=== PATIENT | male | born 1955 | race Caucasian/White ===

== ENCOUNTER → 2020-02-04 | Day surgery (SDC) | payer OTHER ==
[~2020-02-04] MED LIST: CRESTOR10 MG PO; FENTANYL CITRATE/PF 100MCG/2 ML INJ ONE; HYDROMORPHONE HC2 MG PO; HYOSCYAMINE 0.125 MG TAB ONE; LIDOCAINE HCL 2% LOCAL INJ 5 ML SDV VIAL INJ ONE; LISINOPRIL10 MG PO; METOPROLOL SUCC50 MG PO; PANTOPRAZOLE SO40 MG PO; PLAVIX75 MG PO; PROPOFOL IV EMULSION 10 MG/ML 50 ML VIAL ONE
--- OUTSIDE RECORDS SUMMARY | 2020-02-04 08:29 | XMS REPORT ---
Author [email or web address] Address Unknown Phone Unavailable Care Team Providers Care R D Manager Name Role Phone Unavailable Unavailable Payers Payer Name Policy Type Policy Number Effective Date Expiration Date Problems This patient has no known problems. Allergies, Adverse Reactions, Alerts Allergy Name Allergy Type Status Severity Reaction(s) Onset Date Inactive Date Treating Clinician Comments No Known Allergies DA Active U 2013-04-03 00:00:00 Medications This patient has no known medications. Results Test Description Test Time Test Comments Text Results Atomic Results Result Comments [facility] 2020-01-06 16:26:00 RUN DATE: 01/06/20 [place] - Lab PAGE 1 RUN TIME: 1626 Specimen Inquiry RUN USER: INTERFACE PATIENT: LENARD PINEDA LOC: [place] #: [id number] AGE/SX: 64/M ROOM: [address]: 01/03/20REG DR: Raquel Gallardo MD : 59 BED: A DIS: 01/06/20 STATUS: DIS Eve TLOC: SPEC #: [id number] RECD: 01/05/20 STATUS: LAVELLE DENTaylor #: [id number] GERI: 01/05/20- SUBM DR: Raquel Gallardo MD ENTERED: 01/05/20 SP TYPE: STOMACH OTHR DR: No Primary or Family Physician Kai Gallardo MD, Ori Z MD Quraishi, Mohammed A MD TUMOR REGISTRYORDERED: GROSS COPIES TO: No Primary or Family Physician Kai Gallardo MD [address] [place] [address] Raquel Gallardo MD [address] [place] [address] Thierry Torres MD [address] [place] [address] Anurag Posada MD [address] [facility] [place] [address] TUMOR REGISTRY MARKERS: INTRADEPARTMENTAL CONSULT, MALIGNANCY PROCEDURES: GROSS (01/06/20-1255) TISSUES: 1. ANTRUM - BX 2. ANTRUM - SUBMUCOSAL MASS BX 3. ESOPHAGUS, NOS - MINI CIRCUMFERENTIAL MASS BX CONTINUED ON NEXT PAGE RUN DATE: 01/06/20 [place] [facility] PAGE 2 RUN TIME: 1626 Specimen Inquiry RUN USER: INTERFACE SPEC #: [id number] PATIENT: LENARD PINEDA #[id number] (Continued) CLINICAL HISTORY COLLECTION DATE: 01/05/20 ABDOMINAL PAIN COMMENT Sections of the third specimen (esophageal biopsy) show fragments of squamous mucosa with basal cell hyperplasia, elongation of squamous papillae and increased intraepithelial lymphocytes compatible with reflux esophagitis. More significantly, a proliferation of malignant glands is seen invading desmoplastic stroma. Aggregates of malignant, cribriform glands are focally identified beneath benign squamous epithelium. The malignant glands are lined by cells with ovoid, slightly irreg ular, hyperchromatic nuclei and moderate cytoplasm. Mitotic activity is brisk. Cytologic atypia is more striking in some areas. The histologic features are those of an invasive adenocarcinoma. Little solid component is identified. The findings were discussed with Dr. Posada 01/06/2020 at 3:45 pm. Tissue will be submitted for ancillary studies and the results will be reported in an addendum. Multiple levels through the second specimen show benign gastric mucosa. No features diagnostic of submucosal lipoma or other polyp formation are seen. Intradepartmental consultation: DMW. FINAL DIAGNOSIS Gastric antrum, biopsy: REACTIVE GASTROPATHY FRAGMENTS OF GASTRIC MUCOSA WITH NO SIGNIFICANT PATHOLOGIC ALTERATION NEGATIVE FOR HELICOBACTER ORGANISMS NEGATIVE FOR INTESTINAL METAPLASIA NEGATIVE FOR MALIGNANCY Gastric antral submucosal mass, biopsy: BENIGN GASTRIC MUCOSA WITH MINIMAL CHRONIC INFLAMMATION MULTIPLE LEVELS EXAMINED Mini circumferential esophageal mass, biopsy: INVASIVE ADENOCARCINOMA, see comment FOCI OF ADENOCARCINOMA BENEATH BENIGN SQUAMOUS EPITHELIUM CHANGES OF REFLUX ESOPHAGITIS IN SQUAMOUS EPITHELIUM Meño/meg Meade [id number], [id number] CONTINUED ON NEXT PAGE RUN DATE: 01/06/20 [facility] [place] PAGE 3 RUN TIME: 1626 Specimen Inquiry RUN USER: INTERFACE SPEC #: [id number] PATIENT: LENARD PINEDA #[id number] (Continued) MACROSCOPIC The first specimen is received in formalin, labeled with the patient's name, identified as "antrum", and consists of lezama-pink biopsy tissue measuring 0.3 cm in aggregate, submitted as (1). The second specimen is received in formalin, labeled with the patient's name, identified as "antrum submucosal mass", and consists of lezama-light pink biopsy tissue measuring 0.3 cm, submitted as (2). The third specimen is received in formalin, labeled with the patient's name, identified as "mini circumferential mass", and consists of pink biopsy tissue measuring 0.35 cm in aggregate, submitted as (3). GROSS PERFORMED AT [facility] [address] [facility] [place] [address] [phone])[phone] MICROSCOPIC All of the stains, including any controls performed, stain appropriately. MICROSCOPIC PERFORMED AT [facility] [address] [place] [address] (P)[phone] PERFORMING SITE Diagnosis performed at: [facility], [place] [address] [facility], [place] [address] Signed SIGNATURE ON FILE Bradley Willams MD 01/06/20 1626 END OF REPORT STOMACH 2020-01-06 16:26:00 RUN DATE: 01/09/20 [place] [facility] PAGE 1 RUN TIME: 1617 Specimen Inquiry RUN USER: INTERFACE PATIENT: LENARD PINEDA [facility] #: [id number] LOC: [place] #: [id number] AGE/SX: 64/M ROOM: [facility] RE01/03/20REG DR: Raquel Gallardo MD : 59 BED: A DIS: 01/06/20 STATUS: DIS Eve TLOC: SPEC #: [id number] RECD: 01/05/20 STATUS: LAVELLE CEFERINO #: [id number] GERI: 01/05/20- SUBM DR: Raquel Gallardo MD ENTERED: 01/05/20 SP TYPE: STOMACH OTHR DR: No Primary or Family Physician Kai Gallardo MD, Ori Z MD Quraishi, Mohammed A MD TUMOR REGISTRYORDERED: GROSS COPIES TO: No Primary or Family Physician Kai Gallardo MD [address] [place] [address] Raquel Gallardo MD [address] [place] [address] Thierry Torres MD [address] [place] [address] Anurag Posada MD [address] [place] [address] TUMOR REGISTRY MARKERS: INTRADEPARTMENTAL CONSULT, MALIGNANCY PROCEDURES: GROSS (01/06/20-1255) TISSUES: 1. ANTRUM - BX 2. ANTRUM - SUBMUCOSAL MASS BX 3. ESOPHAGUS, NOS - MINI CIRCUMFERENTIAL MASS BX CONTINUED ON NEXT PAGE RUN DATE: 01/09/20 [facility] [place] PAGE 2 RUN TIME: 161 Specimen Inquiry RUN USER: INTERFACE SPEC #: [id number] PATIENT: LENARD PINEDA #[id number] (Continued) ADDENDUM FINDINGS Addendum #1 Entered: 01/09/201045 A HER2 Non-Breast IHC was received from [facility] Accession/Case No: [id number] and the interpretation is as follows: HER2 Non-Breast: POSITIVE Score: 3+ Please refer to [facility] report Accession/Case No: [id number] for any additional information. Addendum Signed SIGNATURE ON FILE Bradley Willams MD 01/09/20 1617 CLINICAL HISTORY COLLECTION DATE: 01/05/20 ABDOMINAL PAIN COMMENT Sections of the third specimen (esophageal biopsy) show fragments of squamous mucosa with basal cell hyperplasia, elongation of squamous papillae and increased intraepithelial lymphocytes compatible with reflux esophagitis. More significantly, a proliferation of malignant glands is seen invading desmoplastic stroma. Aggregates of malignant, cribriform glands are focally identified beneath benign squamous epithelium. The malignant glands are lined by cells with ovoid, slightly irregular, hyperchromatic nuclei and moderate cytoplasm. Mitotic activity is brisk. Cytologic atypia is more striking in some areas. The histologic features are those of an invasive adenocarcinoma. Little solid component is identified. The findings were discussed with Dr. Posada 01/06/2020 at 3:45 pm. Tissue will be submitted for ancillary studies and the results will be reported in an addendum. Multiple levels through the second specimen show benign gastric mucosa. No features diagnostic of submucosal lipoma or other polyp formation are seen. Intradepartmental consultation: [place]. CONTINUED ON NEXT PAGE ----- RUN DATE: 01/09/20 [facility] PAGE 3 RUN TIME: 1616 Specimen Inquiry RUN USER: INTERFACE SPEC #: [id number] PATIENT: LENARD PINEDA #[id number] (Continued) ------- FINAL DIAGNOSIS Gastric antrum, biopsy: REACTIVE GASTROPATHY FRAGMENTS OF GASTRIC MUCOSA WITH NO SIGNIFICANT PATHOLOGIC ALTERATION NEGATIVE FOR HELICOBACTER ORGANISMS NEGATIVE FOR INTESTINAL METAPLASIA NEGATIVE FOR MALIGNANCY Gastric antral submucosal mass, biopsy: BENIGN GASTRIC MUCOSA WITH MINIMAL CHRONIC INFLAMMATION MULTIPLE LEVELS EXAMINED Mini circumferential esophageal mass, biopsy: INVASIVE ADENOCARCINOMA, see comment FOCI OF ADENOCARCINOMA BENEATH BENIGN SQUAMOUS EPITHELIUM CHANGES OF REFLUX ESOPHAGITIS IN SQUAMOUS EPITHELIUM RRB/meg D [id number], [id number] MACROSCOPIC The first specimen is received in formalin, labeled with the patient's name, identified as "antrum", and consists of lezama-pink biopsy tissue measuring 0.3 cm in aggregate, submitted as (1). The second specimen is received in formalin, labeled with the patient's name, identified as "antrum submucosal mass", and consists of lezama-light pink biopsy tissue measuring 0.3 cm, submitted as (2). The third specimen is received in formalin, labeled with the patient's name, identified as "mini circumferential mass", and consists of pink biopsy tissue measuring 0.35 cm in aggregate, submitted as (3). GROSS PERFORMED AT [facility] [address] [facility] [place] [address] [phone])[phone] MICROSCOPIC All of the stains, including any controls performed, stain appropriately. MICROSCOPIC PERFORMED AT [facility] [address] [facility] CONTINUED ON NEXT PAGE RUN DATE: 01/09/20 [facility] PAGE 4 RUN TIME: 1617 Specimen Inquiry RUN USER: INTERFACE SPEC #: [id number] PATIENT: CHEYANNE PINEDAH #[id number] (Continued) MICROSCOPIC (Continued) [place] [address] [phone])[phone] PERFORMING SITE Diagnosis performed at: [facility] [place] [address] [facility] [place] [address] Signed SIGNATURE ON FILE Bradley Willams MD 01/06/20 16 26 END OF REPORT - CT CHEST W/CONTRAST 2020-01-05 15:15:00 Name: LENARD PINEDA [facility] : 1955 Age/S: 64 / M [address] [facility] Unit #: [id number] Loc: [place] [address] Phys: Anurag Posada MD Acct: [id number] Dis Date: Status: ADM IN PHONE #: [phone] Exam Date: 01/05/2020 9725 FAX #: [phone] Reason: ca. esophagus EXAMS: CPT CODE: [id number] CT CHEST W/CONTRAST 83208 HISTORY: Esophageal cancer. COMPARISON: None available. Location: [facility]. CT chest with contrast: 100 mL of Isovue-370. Automated exposure control. Fusiform aneurysmal dilatation of the ascending aorta at 4.3 cm. Descending aorta is not aneurysmal. No dissection. Well-opacified SVC and the visualized neck vasculature. No pulmonary embolism either (not performed as PE protocol). Unremarkable thyroid glands. Esophageal wall demonstrates severe circumferential wall thickening measuring up to 1 cm in the mid to distal third of the esophagus with the segment involving approximately 10 cm. No pathologic hilar, mediastinal or axillary adenopathy. Esophagus is also thickened and the GE junction. Visualized upper abdomen demonstrating 4 cm left adrenal mass as seen on the previous CT scan of the abdomen and pelvis with average Hounsfield unit measurement of 46 and is indeterminate. Mild inflammation along the adrenal. Subcutaneous tissues and the musculature are normal in appearance. Mild gynecomastia. No lytic or blastic lesions are noted within the bony skeleton. DJD. Bibasal subsegmental atelectasis and dependent changes. No infiltrates, effusion or congestion. No metastatic mass or nodules. No bronchiectasis, honeycombing or fibrosis or endobronchial lesions. IMPRESSION: Severe circumferential wall thickening of the mid to distal third of the esophagus with wall thickness measuring up to 1 cm in the segment measuring 10 cm in length consistent with esophageal cancer. No pathologic adenopathy. No lung parenchymal metastatic disease of bony metastatic disease. Indeterminate 4 cm left adrenal mass. Correlate with biopsy. 4.3 cm fusiform aneurysmal dilatation of the ascending aorta. PAGE 1 Signed Report (CONTINUED) Name: LENARD PINEDA [facility] : 1955 Age/S: 64 / M Rufina Culp Unit #: [id number] Loc: [place] [address] Phys: Anurag Posada MD Acct: [id number] Dis Date: Status: ADM IN PHONE #: [phone] Exam Date: 01/05/2020 1449 FAX #: [phone] Reason: ca. esophagus EXAMS: CPT CODE: [id number] CT CHEST W/CONTRAST [address] <Continued> at 1515 Reported and signed by: Xavier Keith M.D. CC: Raquel Gallardo MD; Anurag Posada MD Technologist:Jessica Tipton RT(R) CTDI: DLP: Trnscb Date/Time: 01/05/2020 (1514) t.[email or web address] Orig Print D/T: S: 01/05/2020 (1517) PAGE 2 Signed Report AG CARCINOEMBRYONIC 2020-01-05 14:45:00 AG CARCINOEMBRYONIC (test code=CEA) 3.6 ng/mL 0.0-3.0 "HEALTHY" SMOKERS CAN HAVE CEA VALUES UP TO 5 NG/ML. BENIGNDISORDERS SELDOM ELEVATE THE SERUM CEA LEVEL ABOVE 10 NG/ML. BASIC METABOLIC [id number] 06:08:00* Test Item Value Reference Range Comments SODIUM (test code=NA) 140 mmol/L 136-145 POTASSIUM (test code=K) 3.7 mmol/L 3.5-5.1 CHLORIDE (test code=CL) 106.0 mmol/L 98-107 CARBON DIOXIDE (test code=CO2) 28.0 mmol/L 21-32 ANION GAP (test code=GAP) 9.7 10-20 GLUCOSE (test code=GLU) 107 mg/dL 74-106 BLOOD UREA NITROGEN (test code=BUN) 6 mg/dL 7-18 GLOMERULAR FILTRATION RATE (test code=GFR) > 60 mL/min >=60 Estimated GFR by using Modified MDRD formula.Chronic kidney disease is defined as either kidney damageor GFR <60 mL/min/1.73 m2 for >3 months. CREATININE (test code=CREAT) 0.60 mg/dL 0.7-1.3 BUN/CREATININE RATIO (test code=BUN/CREA) 10.0 10-20 CALCIUM (test code=CA) 8.6 mg/dL 8.5-10.1 CBC W/AUTO [id number] 06:08:00* Test Item Value Reference Range Comments WHITE BLOOD CELL (test code=WBC) 7.3 K/mm3 4.5-12.5 RED BLOOD CELL (test code=RBC) 3.84 mill/mm3 4.0-5.8 HEMOGLOBIN (test code=HGB) 12.5 gram/dL 13.0-17.5 HEMATOCRIT (test code=HCT) 36.9 % 42.0-52.0 MEAN CELL VOLUME (test code=MCV) 96.1 fL 80-98 MEAN CELL HGB (test code=MCH) 32.6 picogram 27.0-33.0 MEAN CELL HGB CONCETRATION (test code=MCHC) 33.9 gram/dL 33.0-36.0 RED CELL DISTRIBUTION WIDTH (test code=RDW) 15.0 % 11.6-16.2 RED CELL DISTRIBUTION WIDTH SD (test code=RDW-SD) 53.1 fL 37.0-51.0 PLATELET COUNT (test code=PLT) 99 K/mm3 150-450 MEAN PLATELET VOLUME (test code=MPV) 9.6 fL 6.7-11.0 NEUTROPHIL % (test code=NT%) 71.7 % 39.0-69.0 IMMATURE GRANULOCYTE % (test code=IG%) 0.5 % 0.0-5.0 LYMPHOCYTE % (test code=LY%) 19.9 % 25.0-55.0 MONOCYTE % (test code=MO%) 6.7 % 0.0-10.0 EOSINOPHIL % (test code=EO%) 0.8 % 0.0-5.0 BASOPHIL % (test code=BA%) 0.4 % 0.0-1.0 NUCLEATED RBC % (test code=NRBC%) 0.0 % 0-0 NEUTROPHIL # (test code=NT#) 5.26 K/mm3 1.8-7.7 IMMATURE GRANULOCYTE # (test code=IG#) 0.04 x10 3/uL 0-0.03 LYMPHOCYTE # (test code=LY#) 1.46 K/mm3 1.0-5.0 MONOCYTE # (test code=MO#) 0.49 K/mm3 0-0.8 EOSINOPHIL # (test code=EO#) 0.06 K/mm3 0.0-0.5 BASOPHIL # (test code=BA#) 0.03 K/mm3 0.0-0.2 NUCLEATED RBC # (test code=NRBC#) 0.00 K/mm3 0.0-0.1 MANUAL DIFF REQUIRED (test code=MDIFF) NO BASIC METABOLIC [id number] 06:04:00* Test Item Value Reference Range Comments SODIUM (test code=NA) 140 mmol/L 136-145 POTASSIUM (test code=K) 3.7 mmol/L 3.5-5.1 CHLORIDE (test code=CL) 106.0 mmol/L 98-107 CARBON DIOXIDE (test code=CO2) mmol/L 21-32 ANION GAP (test code=GAP) 10-20 GLUCOSE (test code=GLU) mg/dL 74-106 BLOOD UREA NITROGEN (test code=BUN) mg/dL 7-18 GLOMERULAR FILTRATION RATE (test code=GFR) mL/min >=60 CREATININE (test code=CREAT) mg/dL 0.7-1.3 BUN/CREATININE RATIO (test code=BUN/CREA) 10-20 CALCIUM (test code=CA) mg/dL 8.5-10.1 BASIC METABOLIC [id number] 06:56:00* Test Item Value Reference Range Comments SODIUM (test code=NA) 139 mmol/L 136-145 POTASSIUM (test code=K) 3.5 mmol/L 3.5-5.1 CHLORIDE (test code=CL) 107.0 mmol/L 98-107 CARBON DIOXIDE (test code=CO2) 26.0 mmol/L 21-32 ANION GAP (test code=GAP) 9.5 10-20 GLUCOSE (test code=GLU) 139 mg/dL 74-106 BLOOD UREA NITROGEN (test code=BUN) 7 mg/dL 7-18 GLOMERULAR FILTRATION RATE (test code=GFR) > 60 mL/min >=60 Estimated GFR by using Modified MDRD formula.Chronic kidney disease is defined as either kidney damageor GFR <60 mL/min/1.73 m2 for >3 months. CREATININE (test code=CREAT) 0.60 mg/dL 0.7-1.3 BUN/CREATININE RATIO (test code=BUN/CREA) 11.7 10-20 CALCIUM (test code=CA) 8.3 mg/dL 8.5-10.1 BASIC METABOLIC [id number] 06:49:00* Test Item Value Reference Range Comments SODIUM (test code=NA) 139 mmol/L 136-145 POTASSIUM (test code=K) 3.5 mmol/L 3.5-5.1 CHLORIDE (test code=CL) 107.0 mmol/L 98-107 CARBON DIOXIDE (test code=CO2) mmol/L 21-32 ANION GAP (test code=GAP) 10-20 GLUCOSE (test code=GLU) mg/dL 74-106 BLOOD UREA NITROGEN (test code=BUN) mg/dL 7-18 GLOMERULAR FILTRATION RATE (test code=GFR) mL/min >=60 CREATININE (test code=CREAT) mg/dL 0.7-1.3 BUN/CREATININE RATIO (test code=BUN/CREA) 10-20 CALCIUM (test code=CA) mg/dL 8.5-10.1 CBC W/AUTO [id number] 06:46:00* Test Item Value Reference Range Comments WHITE BLOOD CELL (test code=WBC) 7.3 K/mm3 4.5-12.5 RED BLOOD CELL (test code=RBC) 4.03 mill/mm3 4.0-5.8 HEMOGLOBIN (test code=HGB) 12.9 gram/dL 13.0-17.5 HEMATOCRIT (test code=HCT) 38.4 % 42.0-52.0 MEAN CELL VOLUME (test code=MCV) 95.3 fL 80-98 MEAN CELL HGB (test code=MCH) 32.0 picogram 27.0-33.0 MEAN CELL HGB CONCETRATION (test code=MCHC) 33.6 gram/dL 33.0-36.0 RED CELL DISTRIBUTION WIDTH (test code=RDW) 14.9 % 11.6-16.2 RED CELL DISTRIBUTION WIDTH SD (test code=RDW-SD) 52.6 fL 37.0-51.0 PLATELET COUNT (test code=PLT) 105 K/mm3 150-450 MEAN PLATELET VOLUME (test code=MPV) 9.2 fL 6.7-11.0 NEUTROPHIL % (test code=NT%) 75.1 % 39.0-69.0 IMMATURE GRANULOCYTE % (test code=IG%) 0.3 % 0.0-5.0 LYMPHOCYTE % (test code=LY%) 18.8 % 25.0-55.0 MONOCYTE % (test code=MO%) 5.4 % 0.0-10.0 EOSINOPHIL % (test code=EO%) 0.3 % 0.0-5.0 BASOPHIL % (test code=BA%) 0.1 % 0.0-1.0 NUCLEATED RBC % (test code=NRBC%) 0.0 % 0-0 NEUTROPHIL # (test code=NT#) 5.46 K/mm3 1.8-7.7 IMMATURE GRANULOCYTE # (test code=IG#) 0.02 x10 3/uL 0-0.03 LYMPHOCYTE # (test code=LY#) 1.37 K/mm3 1.0-5.0 MONOCYTE # (test code=MO#) 0.39 K/mm3 0-0.8 EOSINOPHIL # (test code=EO#) 0.02 K/mm3 0.0-0.5 BASOPHIL # (test code=BA#) 0.01 K/mm3 0.0-0.2 NUCLEATED RBC # (test code=NRBC#) 0.00 K/mm3 0.0-0.1 BASIC METABOLIC [id number] 17:20:00* Test Item Value Reference Range Comments SODIUM (test code=NA) 138 mmol/L 136-145 POTASSIUM (test code=K) 3.5 mmol/L 3.5-5.1 CHLORIDE (test code=CL) 106.0 mmol/L 98-107 CARBON DIOXIDE (test code=CO2) 25.0 mmol/L 21-32 ANION GAP (test code=GAP) 10.5 10-20 GLUCOSE (test code=GLU) 158 mg/dL 74-106 BLOOD UREA NITROGEN (test code=BUN) 8 mg/dL 7-18 GLOMERULAR FILTRATION RATE (test code=GFR) > 60 mL/min >=60 Estimated GFR by using Modified MDRD formula.Chronic kidney disease is defined as either kidney damageor GFR <60 mL/min/1.73 m2 for >3 months. CREATININE (test code=CREAT) 0.80 mg/dL 0.7-1.3 BUN/CREATININE RATIO (test code=BUN/CREA) 10.0 10-20 CALCIUM (test code=CA) 9.0 mg/dL 8.5-10.1 HEPATIC FUNCTION [id number] 17:20:00* Test Item Value Reference Range Comments TOTAL PROTEIN (test code=PROT) 7.7 gram/dL 6.4-8.2 ALBUMIN (test code=ALB) 3.8 g/dL 3.4-5.0 GLOBULIN (test code=GLOB) 3.9 gram/dL 2.7-4.2 ALBUMIN/GLOBULIN RATIO (test code=A/G) 1.0 0.75-1.50 BILIRUBIN TOTAL (test code=BILT) 0.70 mg/dL 0.0-1.0 BILIRUBIN DIRECT (test code=BILD) 0.20 mg/dL 0.0-0.20 SGOT/AST (test code=AST) 37 IUnit/L 15-37 SGPT/ALT (test code=ALT) 38 IUnit/L 12-78 ALKALINE PHOSPHATASE TOTAL (test code=ALKP) 90 IUnit/L 45-117 Note change in reference range due to change in reagent. [id number] 17:20:00* Test Item Value Reference Range Comments LIPASE (test code=LIP) 142 U/L 73.0-393.0 [id number] 17:20:00* Test Item Value Reference Range Comments TROPONIN-I (test code=TROPI) <0.015 ng/mL 0-0.045 BASIC METABOLIC [id number] 17:14:00* Test Item Value Reference Range Comments SODIUM (test code=NA) 138 mmol/L 136-145 POTASSIUM (test code=K) 3.5 mmol/L 3.5-5.1 CHLORIDE (test code=CL) 106.0 mmol/L 98-107 CARBON DIOXIDE (test code=CO2) mmol/L 21-32 ANION GAP (test code=GAP) 10-20 GLUCOSE (test code=GLU) mg/dL 74-106 BLOOD UREA NITROGEN (test code=BUN) mg/dL 7-18 GLOMERULAR FILTRATION RATE (test code=GFR) mL/min >=60 CREATININE (test code=CREAT) mg/dL 0.7-1.3 BUN/CREATININE RATIO (test code=BUN/CREA) 10-20 CALCIUM (test code=CA) mg/dL 8.5-10.1 HEPATIC FUNCTION [id number] 17:14:00* Test Item Value Reference Range Comments TOTAL PROTEIN (test code=PROT) gram/dL 6.4-8.2 ALBUMIN (test code=ALB) g/dL 3.4-5.0 GLOBULIN (test code=GLOB) gram/dL 2.7-4.2 ALBUMIN/GLOBULIN RATIO (test code=A/G) 0.75-1.50 BILIRUBIN TOTAL (test code=BILT) mg/dL 0.0-1.0 BILIRUBIN DIRECT (test code=BILD) mg/dL 0.0-0.20 SGOT/AST (test code=AST) IUnit/L 15-37 SGPT/ALT (test code=ALT) IUnit/L 12-78 ALKALINE PHOSPHATASE TOTAL (test code=ALKP) IUnit/L 45-117 [id number] 17:14:00* Test Item Value Reference Range Comments LIPASE (test code=LIP) U/L 73.0-393.0 [id number] 17:14:00* Test Item Value Reference Range Comments TROPONIN-I (test code=TROPI) ng/mL 0-0.045 CBC W/O [id number] 16:58:00* Test Item Value Reference Range Comments WHITE BLOOD CELL (test code=WBC) 7.1 K/mm3 4.5-12.5 RED BLOOD CELL (test code=RBC) 4.25 mill/mm3 4.0-5.8 HEMOGLOBIN (test code=HGB) 14.0 gram/dL 13.0-17.5 HEMATOCRIT (test code=HCT) 40.2 % 42.0-52.0 MEAN CELL VOLUME (test code=MCV) 94.6 fL 80-98 MEAN CELL HGB (test code=MCH) 32.9 picogram 27.0-33.0 MEAN CELL HGB CONCETRATION (test code=MCHC) 34.8 gram/dL 33.0-36.0 RED CELL DISTRIBUTION WIDTH (test code=RDW) 14.8 % 11.6-16.2 PLATELET COUNT (test code=PLT) 115 K/mm3 150-450 MEAN PLATELET VOLUME (test code=MPV) 9.4 fL 6.7-11.0 CBC W/O [id number] 16:56:00* Test Item Value Reference Range Comments WHITE BLOOD CELL (test code=WBC) K/mm3 4.5-12.5 RED BLOOD CELL (test code=RBC) mill/mm3 4.0-5.8 HEMOGLOBIN (test code=HGB) 14.0 gram/dL 13.0-17.5 HEMATOCRIT (test code=HCT) % 42.0-52.0 MEAN CELL VOLUME (test code=MCV) fL 80-98 MEAN CELL HGB (test code=MCH) picogram 27.0-33.0 MEAN CELL HGB CONCETRATION (test code=MCHC) gram/dL 33.0-36.0 RED CELL DISTRIBUTION WIDTH (test code=RDW) % 11.6-16.2 PLATELET COUNT (test code=PLT) K/mm3 150-450 MEAN PLATELET VOLUME (test code=MPV) fL 6.7-11.0 - CT ABD PELVIS W/O [id number] 16:52:00 Name: LENARD PINEDA [facility] : 1955 Age/S: 64 / M [address] [facility] Unit #: [id number] Loc: [place] [id number] Phys: Ramirez Estrada MD Acct: [id number] Dis Date: Status: REG ER PHONE #: [phone] Exam Date: 01/03/2020 1615 FAX #: [phone] Reason: LUQ abd pain EXAMS: CPT CODE: [id number] CT ABD PELVIS W/O CONT [id number] HISTORY: Left lower quadrant pain. COMPARISON: None available. CT of abdomen and pelvis: Stone protocol. Automated exposure control. Location: [facility]. CT of abdomen: The lung bases are clear. Dependent changes. Noncontrast liver is within normal limits. No discrete mass. No architectural distortion. Contracted gallbladder without radiopaque stones. The liver is not enlarged. The spleen is not enlarged. The stomach distends incompletely however it is normal. Thickened distal esophagus. Noncontrast pancreas is normal. Right adrenal is normal. Left adrenal mass measured 4.2 x 3.3 x 3 cm with average Hounsfie ld unit measurement of 32. No hydroureteronephrosis. No coral ceal stones. Renal vascular calcifications. No pathologic ad enopathy. Atherosclerotic change of the abdominal and pelvic vasculature. No bowel obstruction or colitis or diverticulitis or enteritis. Diverticulosis. CT PELVIS: Appendix is normal. P elvic bowel loops obstructed. Incompletely distended urinary bladd er. Prostate is not enlarged. No pelvic pathologic adenopathy. No free flu id or free air. Subcutaneous tissues and musculature are normal in appearance. No lytic or blastic lesions are noted within the bony skeleto n. DJD. IMPRESSION: No acute intra-abdominal o r intrapelvic pathology. 4.2 x 3.3 x 3 cm PAGE 1 Sign ed Report (CONTINUED) Name: LENARD PINEDA [facility] : 1955 Age/S: 64 / M [address] [facility] Unit #: [id number] Loc: [place] [address] Phys: Ramirez Estrada MD Acct: [id number] Dis Date: Status: REG ER PHONE #: [phone] Exam Date: 01/03/2020 1614 FAX #: [phone] Reason: LUQ abd pain EXAMS: CPT CODE: [id number] CT ABD PELVIS W/O CONT 24124 <Continued> left adrenal mass with average Hounsfield unit measurement of 32 ( Incidental Adrenal Mass (> 1cm) on CT or MR Imaging features are diagnostic: Myolipoma or ca++=benign, no f/u HU < 10 or signal dropout on chemical shift MR=adenoma.* Imaging features NOT diagnostic: 1-4 cm: Prior imaging: Stable > 1 year=benign* Enlarging=concerning for malignancy. Consider bx or resection No prior imaging, no history of cancer: Benign imaging features?: presume benign*. Consider 12 mo f/u CT or MR Suspicious imaging features: Unenhanced CT or chemical shift MR HU < 10 or signal dropout on CS-MR: adenoma HU >10 or no signal dropout on CS-MR ? adrenal washout CT (see below) No prior imaging, history of cancer: Consider PET, unenhanced CT or chemical shift MRI HU < 10 or signal dropout on CS- MR: adenoma HU >10 or no signal dropout on CS-MR ? adrenal washout CT (see below) ADRENAL WASHOUT CT ? No enhancement (< 10 HU)=cyst or hemorrhage. Benign, no f/u ? APW/RPW > 60/40%=adenoma* ? APW/RPW <60/40%=indeterminate. Consider CS-MR is not done. Biopsy if appropriate >4cm: ? No history of cancer: consider resection ? History of cancer: consider PET or biopsy * Consider biochemical eval if pt has clinical signs or sx of adrenal hyperfxn. ? Benign imaging features=homogenous, low density, smooth margins Suspicious imaging features=heterogeneous, necrosis, irregular margins Consider biochemical testing to exclude pheochromocytoma PAGE 2 Signed Report (CONTINUED) Name: LENARD PINEDA [facility] : 1955 Age/S: 64 / M [address] [facility] Unit #: [id number] Loc: [place] [address] Phys: Ramirez Estrada MD Acct: [id number] Dis Date: Status: REG ER PHONE #: [phone] Exam Date: 01/03/2020 1615 FAX #: [phone] Reason: LUQ abd pain EXAMS: CPT CODE: [id number] CT ABD PELVIS W/O CONT 89211 <Continued> Reference: Sheyla L et al. Managing Incidental Findings on Abdominal CT: White Paper of the ACR Incidental Findings Committee. J Am Geri Radiol 2010; 7: 754- 773). at 1652 Reported and signed by: Xavier Keith M.D. CC: Ramirez Estrada MD Technologist:Jessica Tipton RT(R); Becky CTDI: DLP: Trnscb Date/Time: 01/03/2020 (1651) [email or web address] Orig Print D/T: S: 01/03/2020 (1654) PAGE 3 Signed Report
[2020-02-04 12:31] VITALS: BP 117/77
--- NOTE | 2020-02-04 13:07 | Operative Report ---
DATE OF PROCEDURE: 02/04/2020 SURGEON: Kai Gallardo MD PROCEDURE: Colonoscopy with polypectomy. ADDITIONAL REFERRING PHYSICIAN: Duane Bonner DO INDICATIONS FOR COLONOSCOPY: Colorectal cancer screening, abnormal PET scan. MEDICATIONS: The patient was done under MAC, please see anesthesiologist's note. PROCEDURE IN DETAIL: With the patient in left lateral decubitus position, a flexible fiberoptic Olympus colonoscope was inserted into the rectum with ease and advanced all the way to the cecum. Mucosa overlying the cecum appeared to be within normal limits. The ileocecal valve was lobular and large and biopsies were obtained. The scope was then withdrawn slowly and of note, diverticular disease was noted pretty much throughout the colon. Two polyps were removed per snare electrocautery from the ascending colon. Two polyps were hot snared from the proximal transverse colon and one polyp was hot biopsied from the distal transverse colon. A large approximately 1.8 cm submucosal mass in the proximal descending colon suspicious for lipoma was biopsied and there were several lipomas noted proximally. Four polyps were removed per snare electrocautery from the descending colon. A large approximately 2 cm polypoid lesion was removed per snare electrocautery and site was hemoclipped in the sigmoid colon. One polyp was hot biopsied in the distal sigmoid colon. Four polyps were hot snared from the rectum. The scope was then retroflexed into the distal rectum and small internal hemorrhoids were noted, none of which was actively bleeding. The scope was then straightened out, it was subsequently withdrawn. The patient tolerated the procedure well. IMPRESSION: 1. Pandiverticulosis. 2. Lobular ileocecal valve, biopsied. 3. Ascending colon polyps x2, hot snared. 4. Transverse colon polyps x3, two hot snared and one hot biopsied. 5. Descending colon submucosal mass suspicious for lipoma, biopsied. 6. Descending colon polyps x4, hot snared. 7. Sigmoid colon large polypoid lesion approximately 1.8 cm, removed per hot snare polypectomy and site was hemoclipped. 8. Distal sigmoid polyp, hot biopsied. 9. Rectal polyps x4, hot snared. 10. Internal hemorrhoids, none actively bleeding. PLAN: Follow up histology. Timing of followup colonoscopy pending pathology report. MD CYNDY Storm/MODL /[id number] cc: MD Duane Longoria
== END | disposition home or self-care (01) ==
LOC: OR 08:24
PROVIDERS: ATTEND Internal Medicine Gastroenterology
DX: Z12.11 Encounter for screening for malignant neoplasm of colon (principal); D12.2 Benign neoplasm of ascending colon; D12.4 Benign neoplasm of descending colon; D12.5 Benign neoplasm of sigmoid colon; D12.3 Benign neoplasm of transverse colon; K57.32 Diverticulitis of large intestine without perforation or abscess without bleeding; K62.1 Rectal polyp; K64.8 Other hemorrhoids; Z01.810 Encounter for preprocedural cardiovascular examination; K21.9 Gastro-esophageal reflux disease without esophagitis; I25.10 Atherosclerotic heart disease of native coronary artery without angina pectoris; I10 Essential (primary) hypertension; Z85.01 Personal history of malignant neoplasm of esophagus
CPT/HCPCS: 45380; 45384; 45385; 93005; J2001; J2704; J3010; 45378

== ENCOUNTER → 2020-02-14 | Day surgery (SDC) | payer OTHER ==
[~2020-02-14] MED LIST changes: +BUPIVACAINE 0.25% 30ML SDV INJ ONE; +CEFAZOLIN SOD 1 GM VIAL ONE; +DEXAMETHASONE SOD PHOS INJ 4 MG/ML VIAL ONE; +GLYCOPYRROLATE INJ 0.2 MG/ML VIAL ONE; +HEPARIN SOD (PORCINE) 5,000 UNIT/ML VIAL ONE; -HYOSCYAMINE 0.125 MG TAB ONE; +MIDAZOLAM HCL 2 MG/2 ML VIAL ONE; +ONDANSETRON HCL INJ 2MG/ML 2ML 2 MG/ML VIAL ONE; +PROPOFOL IV EMULSION 10 MG/ML 20 ML VIAL ONE; -PROPOFOL IV EMULSION 10 MG/ML 50 ML VIAL ONE; +SEVOFLURANE INHAL SOLN 250 ML PEN BTL ONE; +SODIUM CHLORIDE 0.9% 500ML 500 ML ONE
[2020-02-14 08:40] LABS: BASOPHILS % 0.5 % (0.0-1.0); EOSINOPHILS # (AUTO) 0.1 (0.0-0.4); EOSINOPHILS % 1.1 % (0.0-6.0); HEMATOCRIT 39.1 % (38.2-49.6); HEMOGLOBIN 13.4 g/dL (14.0-18.0); LYMPHOCYTES # (AUTO) 1.4 (1.0-3.2); LYMPHOCYTES % 24.8 % (18.0-39.1); MEAN CORPUSCULAR HEMOGLOBIN 32.7 pg (28-32); MEAN CORPUSCULAR HGB CONC 34.3 g/dL (31-35); MEAN CORPUSCULAR VOLUME 95.4 fL (81-99); MONOCYTES # (AUTO) 0.3 (0.2-0.8); MONOCYTES % 5.8 % (4.4-11.3); NEUTROPHILS # (AUTO) 3.8 (2.1-6.9); NEUTROPHILS % 67.4 % (38.7-80.0); PLATELET COUNT 121 x10e3/uL (140-360); RED CELL DISTRIBUTION WIDTH 14.8 % (11.7-14.4)
[2020-02-14 09:02] LABS: ALANINE AMINOTRANSFERASE 32 IU/L (0-55); ALBUMIN 3.4 g/dL (3.5-5.0); ALBUMIN/GLOBULIN RATIO 1.1 (0.8-2.0); ALKALINE PHOSPHATASE 61 IU/L (40-150); ANION GAP 11.9 mmol/L (8-16); BLOOD UREA NITROGEN 7 mg/dL (7-26); BUN/CREATININE RATIO 9 (6-25); CALCIUM 8.7 mg/dL (8.4-10.2); CARBON DIOXIDE 26 mmol/L (22-29); CHLORIDE 103 mmol/L (98-107); CREATININE, SERUM 0.74 mg/dL (0.72-1.25); EST GLOMERULAR FILTRATION RATE > 60 ML/MIN (60-); GLUCOSE 140 mg/dL (74-118); POTASSIUM 3.9 mmol/L (3.5-5.1); SODIUM 137 mmol/L (136-145)
--- NOTE | 2020-02-14 12:19 | Operative Report ---
DATE OF PROCEDURE: 02/14/2020 SURGEON: Dejuan Whiteside MD PREOPERATIVE DIAGNOSIS: Esophageal cancer, needing IV access for chemotherapy. POSTOPERATIVE DIAGNOSIS: Esophageal cancer, needing IV access for chemotherapy. OPERATION PERFORMED: Placement of left subclavian venous access port under C-arm guidance. THERMAL CUTTING MACHINE OPERATOR: BENITA Kumar ANESTHESIA: General. COMPLICATIONS: None. ESTIMATED BLOOD LOSS: Minimal. DESCRIPTION OF PROCEDURE: With the patient lying in bed in the Trendelenburg position under good general anesthesia, the left chest and neck were prepped with Betadine solution and draped in the usual manner. A standard left subclavian venipuncture was performed, was carried without any difficulty, and a guidewire was advanced into central venous position. Using the C-arm, the tip of the guidewire was confirmed to be at the level of the superior vena cava and the left lung was fully expanded. A pocket was then created in the left anterior chest to accept the reservoir. The catheter was then threaded to the subclavian position. The reservoir was anchored to the anterior chest wall with interrupted sutures of 2-0 silk. The reservoir and catheter were then fully heparinized. The catheter was cut to the appropriate length and peel-away sheath introducer was then placed over the guidewire. The guidewire was removed and the catheter was threaded through the peel-away sheath introducer without any difficulty. Using the C-arm, the tip of the catheter was confirmed to be at the level of the superior vena cava and the left lung was fully expanded. There was good blood return and the catheter and reservoir were fully heparinized. The wounds were then closed in layers. The subcutaneous tissue was approximated with 3-0 and 4-0 Vicryl and the skin was closed with subcuticular 5-0 Vicryl benzoin Steri-Strips and dressings were applied. The sponge, lap, and needle count was correct. The patient tolerated the procedure well and returned to the recovery room in stable condition. MD WAYNE Thomas/NAWAFL /[id number]
[2020-02-14 12:35] VITALS: BP 131/79
== END | disposition home or self-care (01) ==
LOC: OR 07:19
PROVIDERS: ATTEND Surgery
DX: C15.9 Malignant neoplasm of esophagus, unspecified (principal); I45.10 Unspecified right bundle-branch block; I25.10 Atherosclerotic heart disease of native coronary artery without angina pectoris; I10 Essential (primary) hypertension; I25.2 Old myocardial infarction; F17.210 Nicotine dependence, cigarettes, uncomplicated; Z79.02 Long term (current) use of antithrombotics/antiplatelets
CPT/HCPCS: 36415; 36561; 76000; 80053; 85025; C1751; J0690; J1100; J1644; J2001; J2250; J2405; J2704; J3010; J7040

== ENCOUNTER → 2021-01-10 | Day surgery (SDC) | payer OTHER ==
[2021-01-09 14:07] LABS: BASOPHILS % 0.3 % (0.0-1.0); EOSINOPHILS % 0.6 % (0.0-6.0); HEMATOCRIT 32.4 % (38.2-49.6); HEMOGLOBIN 10.6 g/dL (14.0-18.0); LYMPHOCYTES # (AUTO) 0.8 (1.0-3.2); LYMPHOCYTES % 23.1 % (18.0-39.1); MEAN CORPUSCULAR HEMOGLOBIN 30.7 pg (28-32); MEAN CORPUSCULAR HGB CONC 32.7 g/dL (31-35); MEAN CORPUSCULAR VOLUME 93.9 fL (81-99); MONOCYTES # (AUTO) 0.2 (0.2-0.8); MONOCYTES % 6.8 % (4.4-11.3); NEUTROPHILS # (AUTO) 2.3 (2.1-6.9); NEUTROPHILS % 68.9 % (38.7-80.0); PLATELET COUNT 135 x10e3/uL (140-360); RED BLOOD COUNT 3.45 x10e6/uL (4.3-5.7); RED CELL DISTRIBUTION WIDTH 14.9 % (11.7-14.4)
[2021-01-09 14:23] LABS: ANION GAP 15.6 mmol/L (8-16); BLOOD UREA NITROGEN 14 mg/dL (7-26); BUN/CREATININE RATIO 17 (6-25); CARBON DIOXIDE 24 mmol/L (22-29); CHLORIDE 101 mmol/L (98-107); CREATININE, SERUM 0.84 mg/dL (0.72-1.25); EST GLOMERULAR FILTRATION RATE > 60 ML/MIN (60-); GLUCOSE 89 mg/dL (74-118); POTASSIUM 3.6 mmol/L (3.5-5.1); SODIUM 137 mmol/L (136-145)
[~2021-01-10] MED LIST changes: -BUPIVACAINE 0.25% 30ML SDV INJ ONE; -CEFAZOLIN SOD 1 GM VIAL ONE; -DEXAMETHASONE SOD PHOS INJ 4 MG/ML VIAL ONE; -GLYCOPYRROLATE INJ 0.2 MG/ML VIAL ONE; -HEPARIN SOD (PORCINE) 5,000 UNIT/ML VIAL ONE; -ONDANSETRON HCL INJ 2MG/ML 2ML 2 MG/ML VIAL ONE; -SEVOFLURANE INHAL SOLN 250 ML PEN BTL ONE; -SODIUM CHLORIDE 0.9% 500ML 500 ML ONE
[2021-01-10 10:19] VITALS: BP 107/68
== END | disposition home or self-care (01) ==
LOC: ENDO 05:44
PROVIDERS: ATTEND Internal Medicine Gastroenterology
DX: C15.5 Malignant neoplasm of lower third of esophagus (principal); T18.128A Food in esophagus causing other injury, initial encounter; K29.70 Gastritis, unspecified, without bleeding; K31.89 Other diseases of stomach and duodenum; K44.9 Diaphragmatic hernia without obstruction or gangrene; K20.90 Esophagitis, unspecified without bleeding; I45.10 Unspecified right bundle-branch block; I10 Essential (primary) hypertension; F17.210 Nicotine dependence, cigarettes, uncomplicated; X58.XXXA Exposure to other specified factors, initial encounter; Z01.810 Encounter for preprocedural cardiovascular examination; Z01.812 Encounter for preprocedural laboratory examination; Z20.822 Contact with and (suspected) exposure to COVID-19; Z79.02 Long term (current) use of antithrombotics/antiplatelets; Z68.30 Body mass index [BMI] 30.0-30.9, adult
CPT/HCPCS: 36415; 43247; 43248; 80048; 85025; 93005; J2001; J2704; U0002; 43450; J2250; J3010

== ENCOUNTER → 2021-01-16 | Outpatient (CLI) | payer OTHER ==
[~2021-01-16] MED LIST changes: -FENTANYL CITRATE/PF 100MCG/2 ML INJ ONE; +IOPAMIDOL 370 MG/ML 200 ML INFUS..BTL INJ ONE; -LIDOCAINE HCL 2% LOCAL INJ 5 ML SDV VIAL INJ ONE; -MIDAZOLAM HCL 2 MG/2 ML VIAL ONE; -PROPOFOL IV EMULSION 10 MG/ML 20 ML VIAL ONE; +SODIUM CHLORIDE 0.9% 50ML 50 ML ONE
[2021-01-16 09:21] LABS: BLOOD UREA NITROGEN 6 mg/dL (7-26); BUN/CREATININE RATIO 6 (6-25); CREATININE, SERUM 0.93 mg/dL (0.72-1.25); EST GLOMERULAR FILTRATION RATE > 60 ML/MIN (60-)
== END ==
LOC: CT 08:25
PROVIDERS: ATTEND Internal Medicine Medical Oncology
DX: C15.9 Malignant neoplasm of esophagus, unspecified (principal); C79.72 Secondary malignant neoplasm of left adrenal gland
CPT/HCPCS: 36415; 71260; 74177; 82565; 84520; Q9967

== ENCOUNTER → 2021-01-17 | Day surgery (SDC) | payer OTHER ==
[~2021-01-17] MED LIST changes: +DEXAMETHASONE SOD PHOS INJ 4 MG/ML VIAL ONE; +FENTANYL CITRATE/PF 100MCG/2 ML INJ ONE; +HYDROMORPHONE 2MG/ML 2 MG/ML ML ONE; -IOPAMIDOL 370 MG/ML 200 ML INFUS..BTL INJ ONE; +LIDOCAINE HCL 2% LOCAL INJ 5 ML SDV VIAL INJ ONE; +MIDAZOLAM HCL 2 MG/2 ML VIAL ONE; +ONDANSETRON HCL INJ 2MG/ML 2ML 2 MG/ML VIAL ONE; +PROPOFOL IV EMULSION 10 MG/ML 20 ML VIAL ONE; +ROCURONIUM BROMIDE 10 MG/ML 5ML VIAL IV ONE; +SEVOFLURANE INHAL SOLN 250 ML PEN BTL ONE; -SODIUM CHLORIDE 0.9% 50ML 50 ML ONE; +SUGAMMADEX SODIUM 200 MG/2 ML VIAL IV ONE
[2021-01-17 09:25] VITALS: BP 132/79
== END | disposition home or self-care (01) ==
LOC: OR 05:59
PROVIDERS: ATTEND Internal Medicine Gastroenterology
DX: C15.5 Malignant neoplasm of lower third of esophagus (principal); I25.10 Atherosclerotic heart disease of native coronary artery without angina pectoris; I25.2 Old myocardial infarction; I10 Essential (primary) hypertension; E78.5 Hyperlipidemia, unspecified; Z01.812 Encounter for preprocedural laboratory examination; Z20.822 Contact with and (suspected) exposure to COVID-19; Z79.02 Long term (current) use of antithrombotics/antiplatelets; Z68.30 Body mass index [BMI] 30.0-30.9, adult; Z87.891 Personal history of nicotine dependence
CPT/HCPCS: 43266; 76000; C1769; C1874; J1170; J3010; U0002; 43239; J1100; J2001; J2250; J2405

== ENCOUNTER → 2021-05-04 | Day surgery (SDC) | payer OTHER ==
[~2021-05-04] MED LIST changes: -DEXAMETHASONE SOD PHOS INJ 4 MG/ML VIAL ONE; +DEXAMETHASONE4 MG PO; -FENTANYL CITRATE/PF 100MCG/2 ML INJ ONE; +FLUCONAZOLE 100 MG TAB ONE; +FUROSEMIDE40 MG PO; -HYDROMORPHONE 2MG/ML 2 MG/ML ML ONE; -LIDOCAINE HCL 2% LOCAL INJ 5 ML SDV VIAL INJ ONE; -MIDAZOLAM HCL 2 MG/2 ML VIAL ONE; -ONDANSETRON HCL INJ 2MG/ML 2ML 2 MG/ML VIAL ONE; -PROPOFOL IV EMULSION 10 MG/ML 20 ML VIAL ONE; -ROCURONIUM BROMIDE 10 MG/ML 5ML VIAL IV ONE; -SEVOFLURANE INHAL SOLN 250 ML PEN BTL ONE; +SPIRONOLACTONE25 MG PO; -SUGAMMADEX SODIUM 200 MG/2 ML VIAL IV ONE
[2021-05-04 09:00] VITALS: BP 140/93
== END | disposition home or self-care (01) ==
LOC: OR 05:59
PROVIDERS: ATTEND Internal Medicine Gastroenterology
DX: B37.81 Candidal esophagitis (principal); C15.9 Malignant neoplasm of esophagus, unspecified; K29.70 Gastritis, unspecified, without bleeding; K44.9 Diaphragmatic hernia without obstruction or gangrene; Z01.810 Encounter for preprocedural cardiovascular examination; Z97.8 Presence of other specified devices; I25.10 Atherosclerotic heart disease of native coronary artery without angina pectoris; I10 Essential (primary) hypertension
CPT/HCPCS: 43235; 74018; 93005

== ENCOUNTER → 2021-05-17 | Day surgery (SDC) | payer OTHER ==
[~2021-05-17] MED LIST changes: +CLOPIDOGREL75 MG PO; +DURAGESIC1 EAC1 TOP; +FENTANYL CITRATE/PF 100MCG/2 ML INJ ONE; -FLUCONAZOLE 100 MG TAB ONE; +FLUCONAZOLE100 MG PO; +FUROSEMIDE20 MG PO; +HYDROMORPHONE HC4 MG PO; +LIDOCAINE HCL 2% LOCAL INJ 5 ML SDV VIAL INJ ONE; +LISINOPRIL40 MG PO; +METOPROLOL SUC100 MG PO; +ONDANSETRON ODT4 MG SL; +PROPOFOL IV EMULSION 10 MG/ML 20 ML VIAL ONE
[2021-05-17 13:05] VITALS: BP 121/71
== END | disposition home or self-care (01) ==
LOC: ENDO 08:43
PROVIDERS: ATTEND Internal Medicine Gastroenterology
DX: T18.128A Food in esophagus causing other injury, initial encounter (principal); C15.9 Malignant neoplasm of esophagus, unspecified; I10 Essential (primary) hypertension; E78.5 Hyperlipidemia, unspecified; X58.XXXA Exposure to other specified factors, initial encounter; Z20.822 Contact with and (suspected) exposure to COVID-19; Z87.891 Personal history of nicotine dependence
CPT/HCPCS: 43247; 43266; C1769; C1876; J2001; J2704; J3010; U0002; 43235; 43248

== ENCOUNTER 2021-06-10 07:43 | Inpatient (IN) | payer OTHER ==
[~2021-06-10] VITALS: Ht 177.8 cm; Wt 86.2 kg
[~2021-06-10 07:43] MED LIST changes: -CLOPIDOGREL75 MG PO; -DURAGESIC1 EAC1 TOP; -FENTANYL CITRATE/PF 100MCG/2 ML INJ ONE; -FLUCONAZOLE100 MG PO; -FUROSEMIDE20 MG PO; -HYDROMORPHONE HC4 MG PO; -LIDOCAINE HCL 2% LOCAL INJ 5 ML SDV VIAL INJ ONE; -LISINOPRIL40 MG PO; -METOPROLOL SUC100 MG PO; -ONDANSETRON ODT4 MG SL; -PROPOFOL IV EMULSION 10 MG/ML 20 ML VIAL ONE
[2021-06-10] MEDS ORDERED: ONDANSETRON HCL INJ 2MG/ML 2ML 2 MG/ML VIAL IV STA (07:57)
[2021-06-10] MEDS ORDERED: SODIUM CHLORIDE 0.9% 1000ML 1,000 ML IV STA (07:57)
[2021-06-10] MEDS ORDERED: LORAZEPAM INJ 2 MG/ML VIAL IV ONE (08:00)
[2021-06-10 08:53] LABS: HEMATOCRIT 30.4 % (38.2-49.6); HEMOGLOBIN 9.8 g/dL (14.0-18.0); LYMPHOCYTES # (AUTO) 0.6 (1.0-3.2); LYMPHOCYTES % 9.6 % (18.0-39.1); MEAN CORPUSCULAR HEMOGLOBIN 30.7 pg (28-32); MEAN CORPUSCULAR HGB CONC 32.2 g/dL (31-35); MEAN CORPUSCULAR VOLUME 95.3 fL (81-99); MONOCYTES # (AUTO) 0.5 (0.2-0.8); MONOCYTES % 6.8 % (4.4-11.3); NEUTROPHILS # (AUTO) 5.4 (2.1-6.9); NEUTROPHILS % 81.3 % (38.7-80.0); PLATELET COUNT 135 x10e3/uL (140-360); RED BLOOD COUNT 3.19 x10e6/uL (4.3-5.7)
[2021-06-10] MEDS ORDERED: DURAGESIC1 EAC1 TOP (09:01)
[2021-06-10] MEDS ORDERED: FUROSEMIDE20 MG PO (09:01)
[2021-06-10] MEDS ORDERED: METOPROLOL SUC100 MG PO (09:02)
[2021-06-10] MEDS ORDERED: CLOPIDOGREL75 MG PO (09:02)
[2021-06-10 09:15] LABS: INR 0.99; PROTHROMBIN TIME 13.7 seconds (11.9-14.5)
[2021-06-10 09:16] LABS: PARTIAL THROMBOPLASTIN TIME 26.4 seconds (23.8-35.5)
[2021-06-10 09:30] LABS: ANION GAP 17.9 mmol/L (8-16); BLOOD UREA NITROGEN 13 mg/dL (7-26); CARBON DIOXIDE 27 mmol/L (22-29); CHLORIDE 95 mmol/L (98-107); CREATININE, SERUM 0.81 mg/dL (0.72-1.25); SODIUM 137 mmol/L (136-145)
[2021-06-10 09:31] LABS: ALANINE AMINOTRANSFERASE 18 IU/L (0-55); ALBUMIN 3.3 g/dL (3.5-5.0); ALKALINE PHOSPHATASE 47 IU/L (40-150); BUN/CREATININE RATIO 16 (6-25); CALCIUM 9.7 mg/dL (8.4-10.2); EST GLOMERULAR FILTRATION RATE 96 ML/MIN (60-); GLUCOSE 150 mg/dL (74-118); LIPASE 39 U/L (8-78)
[2021-06-10 09:32] LABS: POTASSIUM 2.9 mmol/L (3.5-5.1)
[2021-06-10] MEDS ORDERED: POTASSIUM CHLORIDE 20 MEQ TAB CR PO STA (09:40)
[2021-06-10] MEDS ORDERED: IBUPROFEN 600 MG TAB PO STA (10:12)
[2021-06-10] MEDS ORDERED: MULTIVITAMINS- 12 INJECTION 10 ML, FOLIC ACID MDV 5 MG, THIAMINE HCL INJ 100 MG in SODI... IV ONE (10:45)
[2021-06-10] MEDS ORDERED: KETOROLAC TROMETHAMINE 30 MG/ML VIAL IV STA (13:26)
[2021-06-10] MEDS ORDERED: ONDANSETRON ODT4 MG SL (15:00)
[2021-06-10] MEDS ORDERED: HYDROMORPHONE HC4 MG PO (15:00)
[2021-06-10] MEDS ORDERED: FLUCONAZOLE100 MG PO (15:05)
[2021-06-10] MEDS ORDERED: LISINOPRIL40 MG PO (15:05)
[2021-06-10] MEDS ORDERED: LORAZEPAM INJ 2 MG/ML VIAL IV PRN (17:45)
[2021-06-11 06:51] LABS: ANION GAP 15.2 mmol/L (8-16); POTASSIUM 3.2 mmol/L (3.5-5.1)
[2021-06-11 17:11] VITALS: BP 145/89
[2021-06-11 18:18] VITALS: BP 145/89
[2021-06-11] MEDS: HYDROMORPHONE 2MG/ML 2 MG/ML ML IV PRN (18:44)
[2021-06-11 19:56] VITALS: BP 153/101
[2021-06-11 21:00] VITALS: BP 153/101
[2021-06-12 00:29] VITALS: BP 133/91
[2021-06-12] MEDS: HYDROMORPHONE 2MG/ML 2 MG/ML ML IV PRN ×2 (02:38→09:17)
[2021-06-12] MEDS: Pantoprazole IV 40 MG in SODIUM CHLORIDE 0.9% 50ML 50 ML IV SCH ×2 (03:00→09:08)
[2021-06-12] MEDS ORDERED: FLUCONAZOLE 200 MG/100 ML 100 ML IV SCH (03:00)
[2021-06-12] MEDS ORDERED: Pantoprazole IV 40 MG in SODIUM CHLORIDE 0.9% 50ML 50 ML IV SCH (03:00)
[2021-06-12 05:15] VITALS: BP 153/99
[2021-06-12 08:05] VITALS: BP 144/92
[2021-06-12 10:49] VITALS: BP 144/92
[2021-06-12 12:16] VITALS: BP 153/97
== END 2021-06-12 15:34 | disposition hospice, home (50) | DRG 436 ==
LOC: ER 08:14 → ERHOLD 10:51 → MED/SURG3 06-11 16:37
PROVIDERS: ADMIT Internal Medicine Medical Oncology; ATTEND Internal Medicine Medical Oncology
DX: C78.7 Secondary malignant neoplasm of liver and intrahepatic bile duct (principal); C15.9 Malignant neoplasm of esophagus, unspecified; C78.00 Secondary malignant neoplasm of unspecified lung; C79.70 Secondary malignant neoplasm of unspecified adrenal gland; Z51.5 Encounter for palliative care; E87.8 Other disorders of electrolyte and fluid balance, not elsewhere classified; F41.9 Anxiety disorder, unspecified; F32.9 Major depressive disorder, single episode, unspecified; D63.8 Anemia in other chronic diseases classified elsewhere; E88.09 Other disorders of plasma-protein metabolism, not elsewhere classified; E87.6 Hypokalemia; F10.20 Alcohol dependence, uncomplicated; Y90.0 Blood alcohol level of less than 20 mg/100 ml; Z66 Do not resuscitate; G13.1 Other systemic atrophy primarily affecting central nervous system in neoplastic disease
CPT/HCPCS: 36415; 70450; 80051; 80053; 80320; 82140; 83690; 85025; 85610; 85730; 99284; 99285; J1450; J1885; J2060; J2405; J3411; J7030; U0002